=== PATIENT | male | born 1970 | race Caucasian/White ===

== ENCOUNTER 2019-05-08 21:40 | Emergency (ER) | payer BC ==
[~2019-05-08] VITALS: Ht 177.8 cm; Wt 85.3 kg
[2019-05-08 22:15] VITALS: BP_SYST 149
--- NOTE | 2019-05-08 22:24 | NUR ---
Pt placed to ER waiting room in stable condition.
--- NOTE | 2019-05-09 01:00 | NUR ---
Pt's name called and not present in waiting room.
--- NOTE | 2019-05-09 01:15 | NUR ---
Pt's name called and not present in waiting room.
--- NOTE | 2019-05-09 01:30 | NUR ---
Pt's name called and not present in waiting room. Pt LWBS.
== END 2019-05-09 01:30 | disposition left against medical advice (07) ==
LOC: SED 21:40
DX: Z02.89 Encounter for other administrative examinations (principal); Z53.21 Procedure and treatment not carried out due to patient leaving prior to being seen by health care provider

== ENCOUNTER 2019-10-19 19:12 | Inpatient (IN) | payer BC, SELFPAY ==
[~2019-10-19] VITALS: Ht 177.8 cm; Wt 88.0 kg
[2019-10-19] MEDS ORDERED: AMIT50TA3 PO (19:22)
[2019-10-19] MEDS ORDERED: LISI5TAB PO (19:22)
[2019-10-19] MEDS ORDERED: LORA-259 PO (19:22)
[2019-10-19 19:23] VITALS: BP_SYST 137
[2019-10-19] MEDS ORDERED: NS 500 ML IV ONE ×2 (20:45→22:00)
[2019-10-19 20:54] LABS: BASOPHILS % (AUTO) 0.3 % (0.0-2.0); HEMATOCRIT 44.1 % (36-54); HEMOGLOBIN 15.2 g/dL (14.0-18.0); LYMPHOCYTES # (AUTO) 0.8 K/uL (1.0-5.5); MEAN CORPUSCULAR HEMOGLOBIN 32 pg (27-31); MEAN CORPUSCULAR HGB CONC 35 % (32-36); MEAN CORPUSCULAR VOLUME 93 fL (79.0-98.0); MONOCYTES # (AUTO) 0.5 K/uL (0.0-1.0); MONOCYTES % (AUTO) 12.3 % (1.7-9.3); NEUTROPHILS # (AUTO) 2.6 K/uL (1.8-7.7); NEUTROPHILS % (AUTO) 67.4 % (40.0-70.0); PLATELET COUNT (AUTO) 112 K/uL (130-430); RED BLOOD CELL COUNT(AUTO) 4.73 MIL/uL (4.2-6.2); RED CELL DISTRIBUTION WIDTH 12.7 % (9.0-15.0); WHITE BLOOD COUNT (AUTO) 3.9 K/uL (4.8-10.8)
[2019-10-19] MEDS ORDERED: ACETAMINOPHEN 500 MG TABLET PO ONE (21:00)
[2019-10-19 21:17] LABS: POTASSIUM 4.1 mmol/L (3.5-5.1)
[2019-10-19 21:18] LABS: ALBUMIN 3.7 g/dL (3.4-4.8); CREATININE 1.51 mg/dL (0.55-1.30); TOTAL BILIRUBIN 0.5 mg/dL (0.0-1.0)
[2019-10-19 21:19] LABS: C-REACTIVE PROTEIN QUANT 1.2 mg/dL (0-0.5)
[2019-10-19 21:44] LABS: CKMB RELATIVE INDEX 0.2 (0.0-2.9); CREATINE KINASE MB 1.2 ng/mL (0-3.6)
[2019-10-19] MEDS ORDERED: AZITHROMYCIN 500 MG in NS 250 ML IV ONE (22:00)
[2019-10-19] MEDS ORDERED: OSELTAMIVIR PHOSPHATE 75 MG CAPSULE PO ONE (22:00)
[2019-10-19] MEDS ORDERED: cefTRIAXone 1 GM IVPB PREMIX 50 ML IV ONE ×2 (22:00→23:44)
[2019-10-19 23:00] VITALS: BP_SYST 122
[2019-10-19] MEDS ORDERED: AZITHROMYCIN 500 MG/VIAL (ZITHROMAX) IV ONE (23:44)
[2019-10-19] MEDS ORDERED: NACL 0.9% 1,000 ML IV SCH (23:55)
[2019-10-20] MEDS ORDERED: MORPHINE 2 MG/ML INJ. SYRINGE IVP PRN
[2019-10-20] MEDS ORDERED: cefTRIAXone 1 GM IVPB PREMIX 50 ML IV SCH
[2019-10-20] MEDS ORDERED: ACETAMINOPHEN 325 MG TABLET PO PRN
[2019-10-20] MEDS ORDERED: HYDROcodone/ACETAMIN 5-325 MG TAB (NORCO/ VICODIN) PO PRN
[2019-10-20] MEDS ORDERED: traMADol HCL HCL 50 MG TABLET (ULTRAM) PO PRN ×2 (00:30)
[2019-10-20] MEDS ORDERED: cefTRIAXone 1 GM in D5W 50 ML IV SCH (00:30)
[2019-10-20] MEDS ORDERED: AZITHROMYCIN 500 MG in NS 250 ML IV SCH ×3 (00:30)
[2019-10-20] MEDS ORDERED: TEMAZEPAM 15 MG CAPSULE PO PRN (00:45)
[2019-10-20] MEDS ORDERED: cloNIDine HCL 0.1 MG TABLET PO PRN (00:45)
[2019-10-20] MEDS: NACL 0.9% 1,000 ML IV SCH ×3 (00:57→23:02)
[2019-10-20] MEDS ORDERED: ENOXAPARIN SODIUM 40 MG/0.4 ML SYRINGE ONE (01:21)
[2019-10-20] MEDS ORDERED: AMITRIPTYLINE HCL 25 MG TABLET (ELAVIL) ONE (01:25)
[2019-10-20] MEDS ORDERED: ENOXAPARIN SODIUM 40 MG/0.4 ML SYRINGE SUBCUT ONE (01:30)
[2019-10-20 07:59] VITALS: BP_SYST 105
[2019-10-20 08:51] LABS: BASOPHILS % (AUTO) 0.9 % (0.0-2.0); EOSINOPHILS % (AUTO) 0.1 % (0.0-4.0); HEMATOCRIT 47.7 % (36-54); HEMOGLOBIN 16.2 g/dL (14.0-18.0); LYMPHOCYTES # (AUTO) 1.4 K/uL (1.0-5.5); LYMPHOCYTES % (AUTO) 32.5 % (20.5-51.5); MEAN CORPUSCULAR HEMOGLOBIN 32 pg (27-31); MEAN CORPUSCULAR HGB CONC 34 % (32-36); MEAN CORPUSCULAR VOLUME 94 fL (79.0-98.0); MONOCYTES # (AUTO) 0.4 K/uL (0.0-1.0); MONOCYTES % (AUTO) 10.1 % (1.7-9.3); NEUTROPHILS # (AUTO) 2.5 K/uL (1.8-7.7); NEUTROPHILS % (AUTO) 56.4 % (40.0-70.0); PLATELET COUNT (AUTO) 123 K/uL (130-430); RED BLOOD CELL COUNT(AUTO) 5.06 MIL/uL (4.2-6.2); RED CELL DISTRIBUTION WIDTH 13.2 % (9.0-15.0); WHITE BLOOD COUNT (AUTO) 4.4 K/uL (4.8-10.8)
[2019-10-20] MEDS ORDERED: OSELTAMIVIR PHOSPHATE 75 MG CAPSULE PO SCH (09:00)
[2019-10-20 09:26] LABS: ALBUMIN 3.6 g/dL (3.4-4.8); CREATININE 1.48 mg/dL (0.55-1.30); POTASSIUM 4.1 mmol/L (3.5-5.1); TOTAL BILIRUBIN 0.5 mg/dL (0.0-1.0)
[2019-10-20] MEDS: OSELTAMIVIR PHOSPHATE 75 MG CAPSULE PO SCH ×2 (09:35→22:11)
[2019-10-20] MEDS: guaiFENesin/DEXTROMETHORPHAN 10 ML UDC PO PRN ×3 (09:36→23:03)
[2019-10-20 12:00] VITALS: BP_SYST 145
[2019-10-20 14:10] VITALS: BP_SYST 145
[2019-10-20] MEDS: IPRATROPIUM/ALBUTEROL SULFATE 3 ML AMPUL.NEB (DUONEB) INH SCH ×2 (14:29→21:23)
[2019-10-20 16:00] VITALS: BP_SYST 126
[2019-10-20 20:00] VITALS: BP_SYST 124
[2019-10-20] MEDS: ENOXAPARIN SODIUM 40 MG/0.4 ML SYRINGE SUBCUT SCH (21:00)
[2019-10-20] MEDS: cefTRIAXone 1 GM in D5W 50 ML IV SCH (21:23)
[2019-10-20] MEDS: LISINOPRIL 5 MG TABLET PO SCH (22:12)
[2019-10-20] MEDS: AMITRIPTYLINE HCL 25 MG TABLET (ELAVIL) PO SCH (22:12)
[2019-10-20] MEDS: AZITHROMYCIN 500 MG in NS 250 ML IV SCH (22:14)
[2019-10-20] MEDS: ACETAMINOPHEN 325 MG TABLET PO PRN (23:04)
[2019-10-20 23:05] VITALS: BP_SYST 118
[2019-10-21 05:30] VITALS: BP_SYST 116
[2019-10-21] MEDS: NACL 0.9% 1,000 ML IV SCH ×3 (06:30→21:17)
[2019-10-21 06:32] LABS: BASOPHILS % (AUTO) 0.4 % (0.0-2.0); HEMATOCRIT 41.6 % (36-54); LYMPHOCYTES % (AUTO) 31.9 % (20.5-51.5); MEAN CORPUSCULAR HEMOGLOBIN 32 pg (27-31); MEAN CORPUSCULAR HGB CONC 34 % (32-36); MEAN CORPUSCULAR VOLUME 94 fL (79.0-98.0); MONOCYTES # (AUTO) 0.3 K/uL (0.0-1.0); MONOCYTES % (AUTO) 9.2 % (1.7-9.3); NEUTROPHILS # (AUTO) 1.8 K/uL (1.8-7.7); NEUTROPHILS % (AUTO) 58.5 % (40.0-70.0); PLATELET COUNT (AUTO) 105 K/uL (130-430); RED BLOOD CELL COUNT(AUTO) 4.41 MIL/uL (4.2-6.2); RED CELL DISTRIBUTION WIDTH 12.8 % (9.0-15.0); WHITE BLOOD COUNT (AUTO) 3.1 K/uL (4.8-10.8)
[2019-10-21 06:48] LABS: CALCIUM 7.9 mg/dL (8.4-11.0); CREATININE 1.25 mg/dL (0.55-1.30); POTASSIUM 4.2 mmol/L (3.5-5.1); TOTAL BILIRUBIN 0.4 mg/dL (0.0-1.0)
[2019-10-21] MEDS: IPRATROPIUM/ALBUTEROL SULFATE 3 ML AMPUL.NEB (DUONEB) INH SCH ×3 (07:00→15:30)
[2019-10-21 07:58] VITALS: BP_SYST 154
[2019-10-21] MEDS: OSELTAMIVIR PHOSPHATE 75 MG CAPSULE PO SCH ×2 (08:49→21:19)
[2019-10-21] MEDS: guaiFENesin/DEXTROMETHORPHAN 10 ML UDC PO PRN ×2 (09:06→17:42)
[2019-10-21] MEDS: ACETAMINOPHEN 325 MG TABLET PO PRN ×3 (09:07→23:10)
[2019-10-21 12:00] VITALS: BP_SYST 128
[2019-10-21 17:30] VITALS: BP_SYST 128
[2019-10-21 20:00] VITALS: BP_SYST 125
[2019-10-21] MEDS: ENOXAPARIN SODIUM 40 MG/0.4 ML SYRINGE SUBCUT SCH (21:00)
[2019-10-21] MEDS: cefTRIAXone 1 GM in D5W 50 ML IV SCH (21:18)
[2019-10-21] MEDS: AMITRIPTYLINE HCL 25 MG TABLET (ELAVIL) PO SCH (21:18)
[2019-10-21] MEDS: LISINOPRIL 5 MG TABLET PO SCH (21:19)
[2019-10-21] MEDS: AZITHROMYCIN 500 MG in NS 250 ML IV SCH (21:58)
[2019-10-21 23:10] VITALS: BP_SYST 136
[2019-10-22] MEDS: ACETAMINOPHEN 325 MG TABLET PO PRN ×3 (06:40→23:46)
[2019-10-22] MEDS: IPRATROPIUM/ALBUTEROL SULFATE 3 ML AMPUL.NEB (DUONEB) INH SCH ×2 (07:00→14:59)
[2019-10-22 08:00] VITALS: BP_SYST 148
[2019-10-22] MEDS: OSELTAMIVIR PHOSPHATE 75 MG CAPSULE PO SCH ×2 (08:09→20:16)
[2019-10-22 12:00] VITALS: BP_SYST 130
[2019-10-22] MEDS: NACL 0.9% 1,000 ML IV SCH (12:12)
[2019-10-22] MEDS: guaiFENesin/DEXTROMETHORPHAN 10 ML UDC PO PRN ×2 (15:29→23:46)
[2019-10-22 16:00] VITALS: BP_SYST 148
[2019-10-22] MEDS ORDERED: ALBUTEROL MDI INHALATION 8 GM INH INH PRN (16:00)
[2019-10-22] MEDS ORDERED: METOPROLOL TARTRATE 25 MG TABLET PO ONE (18:30)
[2019-10-22] MEDS ORDERED: METOPROLOL TARTRATE 25 MG TABLET ONE (18:39)
[2019-10-22] MEDS: AMITRIPTYLINE HCL 25 MG TABLET (ELAVIL) PO SCH (20:15)
[2019-10-22] MEDS: MULTIVITS,CA,MINERALS/IRON/FA 1 TABLET PO SCH (20:16)
[2019-10-22] MEDS: CHOLECALCIFEROL (VITAMIN D3) 2,000 UNIT TABLET PO SCH (20:16)
[2019-10-22] MEDS: HYDROXYCHLOROQUINE SULFATE 200 MG TABLET PO SCH (20:17)
[2019-10-22] MEDS: cefTRIAXone 1 GM in D5W 50 ML IV SCH (20:18)
[2019-10-22 20:30] VITALS: BP_SYST 133
[2019-10-22] MEDS ORDERED: METOPROLOL TARTRATE 25 MG TABLET PO SCH (21:00)
[2019-10-22] MEDS: LISINOPRIL 5 MG TABLET PO SCH (21:08)
[2019-10-22] MEDS: AZITHROMYCIN 500 MG in NS 250 ML IV SCH (22:15)
[2019-10-22 23:30] VITALS: BP_SYST 133
[2019-10-23 01:44] LABS: BILIRUBIN,URINE NEGATIVE (NEGATIVE); BLOOD, URINE NEGATIVE (NEGATIVE); CLARITY/URINE CLEAR (CLEAR); COLOR,URINE YELLOW (YELLOW); GLUCOSE,URINE NEGATIVE (NEGATIVE); KETONES,URINE TRACE (NEGATIVE); LEUKOCYTE ESTERASE ,URINE NEGATIVE (NEGATIVE); NITRITE, URINE NEGATIVE (NEGATIVE); PH,URINE 6.5 (5.0-8.0); PROTEIN URINE NEGATIVE (NEGATIVE); UROBILINOGEN,URINE 0.2 (0.2-1.0)
[2019-10-23] MEDS: NACL 0.9% 1,000 ML IV SCH ×2 (02:54→20:45)
[2019-10-23] MEDS: guaiFENesin/DEXTROMETHORPHAN 10 ML UDC PO PRN ×2 (06:40→23:45)
[2019-10-23 08:00] VITALS: BP_SYST 142
[2019-10-23 08:15] LABS: RETICULOCYTE COUNT 0.6 % (0.5-1.5)
[2019-10-23 08:23] LABS: BASOPHILS % (AUTO) 0.2 % (0.0-2.0); EOSINOPHILS % (AUTO) 0.1 % (0.0-4.0); HEMOGLOBIN 13.8 g/dL (14.0-18.0); LYMPHOCYTES # (AUTO) 0.9 K/uL (1.0-5.5); LYMPHOCYTES % (AUTO) 9.9 % (20.5-51.5); MEAN CORPUSCULAR HEMOGLOBIN 32 pg (27-31); MEAN CORPUSCULAR HGB CONC 34 % (32-36); MEAN CORPUSCULAR VOLUME 94 fL (79.0-98.0); MONOCYTES # (AUTO) 0.6 K/uL (0.0-1.0); MONOCYTES % (AUTO) 7.2 % (1.7-9.3); NEUTROPHILS # (AUTO) 7.2 K/uL (1.8-7.7); NEUTROPHILS % (AUTO) 82.6 % (40.0-70.0); RED BLOOD CELL COUNT(AUTO) 4.34 MIL/uL (4.2-6.2); WHITE BLOOD COUNT (AUTO) 8.7 K/uL (4.8-10.8)
[2019-10-23 08:34] LABS: ALBUMIN 2.9 g/dL (3.4-4.8); CALCIUM 8.2 mg/dL (8.4-11.0); CREATININE 1.09 mg/dL (0.55-1.30); PLATELET COUNT (AUTO) 116 K/uL (130-430); POTASSIUM 3.8 mmol/L (3.5-5.1); TOTAL BILIRUBIN 0.5 mg/dL (0.0-1.0)
[2019-10-23] MEDS: METOPROLOL TARTRATE 25 MG TABLET PO SCH ×2 (08:35→21:00)
[2019-10-23] MEDS: CHOLECALCIFEROL (VITAMIN D3) 2,000 UNIT TABLET PO SCH ×2 (08:35→20:45)
[2019-10-23] MEDS: OSELTAMIVIR PHOSPHATE 75 MG CAPSULE PO SCH ×2 (08:36→20:45)
[2019-10-23] MEDS: MULTIVITS,CA,MINERALS/IRON/FA 1 TABLET PO SCH ×2 (08:36→20:45)
[2019-10-23] MEDS: HYDROXYCHLOROQUINE SULFATE 200 MG TABLET PO SCH ×2 (08:36→20:45)
[2019-10-23] MEDS ORDERED: METOPROLOL SUCCINATE 25 MG TAB.SR.24H (TOPROL XL) PO SCH (09:00)
[2019-10-23 10:01] VITALS: BP_SYST 142
[2019-10-23 12:00] VITALS: BP_SYST 121
[2019-10-23] MEDS ORDERED: ASCORBIC ACID 500 MG TABLET PO ONE (12:00)
[2019-10-23] MEDS ORDERED: ENOXAPARIN SODIUM 30 MG/0.3 ML SYRINGE SUBCUT ONE (12:00)
[2019-10-23] MEDS ORDERED: LIDOCAINE PATCH 5% 1 EA TP ONE (12:00)
[2019-10-23 16:00] VITALS: BP_SYST 126
[2019-10-23] MEDS: LOPERAMIDE HCL 2 MG CAPSULE PO PRN (18:12)
[2019-10-23 20:40] VITALS: BP_SYST 120
[2019-10-23] MEDS: AMITRIPTYLINE HCL 25 MG TABLET (ELAVIL) PO SCH (20:45)
[2019-10-23] MEDS: LISINOPRIL 5 MG TABLET PO SCH (20:45)
[2019-10-23] MEDS: AZITHROMYCIN 500 MG in NS 250 ML IV SCH (20:45)
[2019-10-23] MEDS: MIRTAZAPINE 15 MG TABLET PO SCH (20:45)
[2019-10-23 23:45] VITALS: BP_SYST 122
[2019-10-24 08:00] VITALS: BP_SYST 124
[2019-10-24] MEDS ORDERED: ENOXAPARIN SODIUM 30 MG/0.3 ML SYRINGE SUBCUT SCH (09:00)
[2019-10-24] MEDS: MULTIVITS,CA,MINERALS/IRON/FA 1 TABLET PO SCH ×2 (09:13→21:15)
[2019-10-24] MEDS: METOPROLOL TARTRATE 25 MG TABLET PO SCH ×2 (09:13→20:56)
[2019-10-24] MEDS: CHOLECALCIFEROL (VITAMIN D3) 2,000 UNIT TABLET PO SCH ×2 (09:13→21:15)
[2019-10-24] MEDS: ASCORBIC ACID 500 MG TABLET PO SCH (09:13)
[2019-10-24] MEDS: HYDROXYCHLOROQUINE SULFATE 200 MG TABLET PO SCH ×2 (09:13→21:15)
[2019-10-24] MEDS: OSELTAMIVIR PHOSPHATE 75 MG CAPSULE PO SCH ×2 (09:13→21:15)
[2019-10-24] MEDS: LIDOCAINE PATCH 5% 1 EA TP SCH (09:16)
[2019-10-24] MEDS: LORazepam 1 MG TABLET PO PRN ×2 (10:56→23:47)
[2019-10-24 12:00] VITALS: BP_SYST 122
[2019-10-24] MEDS: NACL 0.9% 1,000 ML IV SCH (12:14)
[2019-10-24 16:00] VITALS: BP_SYST 116
[2019-10-24] MEDS: guaiFENesin/DEXTROMETHORPHAN 10 ML UDC PO PRN ×2 (18:28→23:47)
[2019-10-24 19:41] LABS: C-REACTIVE PROTEIN QUANT 3.7 mg/dL (0-0.5)
[2019-10-24] MEDS: ENOXAPARIN SODIUM 80 MG/0.8 ML SYRINGE SUBCUT SCH (21:04)
[2019-10-24 21:05] VITALS: BP_SYST 118
[2019-10-24] MEDS: LISINOPRIL 5 MG TABLET PO SCH (21:15)
[2019-10-24] MEDS: AZITHROMYCIN 500 MG in NS 250 ML IV SCH (21:15)
[2019-10-24] MEDS: MIRTAZAPINE 15 MG TABLET PO SCH (21:15)
[2019-10-24] MEDS: AMITRIPTYLINE HCL 25 MG TABLET (ELAVIL) PO SCH (21:15)
[2019-10-24 23:53] VITALS: BP_SYST 116
[2019-10-25] MEDS: NACL 0.9% 1,000 ML IV SCH ×2 (04:00→21:11)
[2019-10-25 06:43] LABS: BASOPHILS % (AUTO) 0.3 % (0.0-2.0); EOSINOPHILS % (AUTO) 1.2 % (0.0-4.0); HEMATOCRIT 38.8 % (36-54); LYMPHOCYTES # (AUTO) 1.1 K/uL (1.0-5.5); LYMPHOCYTES % (AUTO) 25.3 % (20.5-51.5); MEAN CORPUSCULAR HEMOGLOBIN 32 pg (27-31); MEAN CORPUSCULAR HGB CONC 34 % (32-36); MEAN CORPUSCULAR VOLUME 95 fL (79.0-98.0); MONOCYTES # (AUTO) 0.5 K/uL (0.0-1.0); MONOCYTES % (AUTO) 10.9 % (1.7-9.3); NEUTROPHILS # (AUTO) 2.6 K/uL (1.8-7.7); NEUTROPHILS % (AUTO) 62.3 % (40.0-70.0); PLATELET COUNT (AUTO) 204 K/uL (130-430); RED BLOOD CELL COUNT(AUTO) 4.11 MIL/uL (4.2-6.2); RED CELL DISTRIBUTION WIDTH 12.8 % (9.0-15.0); WHITE BLOOD COUNT (AUTO) 4.2 K/uL (4.8-10.8)
[2019-10-25 07:07] LABS: ALBUMIN 2.7 g/dL (3.4-4.8); CALCIUM 8.2 mg/dL (8.4-11.0); CREATININE 1.01 mg/dL (0.55-1.30); POTASSIUM 3.8 mmol/L (3.5-5.1); TOTAL BILIRUBIN 0.4 mg/dL (0.0-1.0)
[2019-10-25 08:23] LABS: ERYTHROCYTE SEDIMENTATION RATE 64 MM/HR (0-15)
[2019-10-25 08:25] VITALS: BP_SYST 120
[2019-10-25] MEDS: LIDOCAINE PATCH 5% 1 EA TP SCH (08:26)
[2019-10-25] MEDS: MULTIVITS,CA,MINERALS/IRON/FA 1 TABLET PO SCH ×2 (08:26→21:12)
[2019-10-25] MEDS: METOPROLOL TARTRATE 25 MG TABLET PO SCH ×2 (08:26→21:20)
[2019-10-25] MEDS: CHOLECALCIFEROL (VITAMIN D3) 2,000 UNIT TABLET PO SCH ×2 (08:26→21:14)
[2019-10-25] MEDS: HYDROXYCHLOROQUINE SULFATE 200 MG TABLET PO SCH ×2 (08:26→21:11)
[2019-10-25] MEDS: ASCORBIC ACID 500 MG TABLET PO SCH (08:26)
[2019-10-25] MEDS: ENOXAPARIN SODIUM 80 MG/0.8 ML SYRINGE SUBCUT SCH ×2 (08:27→21:16)
[2019-10-25 12:00] VITALS: BP_SYST 121
[2019-10-25 16:00] VITALS: BP_SYST 115
[2019-10-25] MEDS: LOPERAMIDE HCL 2 MG CAPSULE PO PRN (16:24)
[2019-10-25 21:00] VITALS: BP_SYST 136
[2019-10-25] MEDS: MIRTAZAPINE 15 MG TABLET PO SCH (21:12)
[2019-10-25] MEDS: AMITRIPTYLINE HCL 25 MG TABLET (ELAVIL) PO SCH (21:12)
[2019-10-25] MEDS: LISINOPRIL 5 MG TABLET PO SCH (21:21)
[2019-10-25] MEDS: guaiFENesin/DEXTROMETHORPHAN 10 ML UDC PO PRN (21:22)
[2019-10-26 00:10] VITALS: BP_SYST 115
[2019-10-26 06:30] VITALS: BP_SYST 113
[2019-10-26 08:00] VITALS: BP_SYST 128
[2019-10-26] MEDS: CHOLECALCIFEROL (VITAMIN D3) 2,000 UNIT TABLET PO SCH ×2 (08:19→20:35)
[2019-10-26] MEDS: MULTIVITS,CA,MINERALS/IRON/FA 1 TABLET PO SCH ×2 (08:19→20:35)
[2019-10-26] MEDS: ASCORBIC ACID 500 MG TABLET PO SCH (08:19)
[2019-10-26] MEDS: HYDROXYCHLOROQUINE SULFATE 200 MG TABLET PO SCH ×2 (08:19→20:35)
[2019-10-26] MEDS: LIDOCAINE PATCH 5% 1 EA TP SCH (08:19)
[2019-10-26] MEDS: LORazepam 1 MG TABLET PO PRN (08:20)
[2019-10-26] MEDS: METOPROLOL TARTRATE 25 MG TABLET PO SCH ×2 (08:20→20:41)
[2019-10-26] MEDS: ENOXAPARIN SODIUM 80 MG/0.8 ML SYRINGE SUBCUT SCH ×2 (08:22→20:48)
[2019-10-26 12:10] VITALS: BP_SYST 94
[2019-10-26] MEDS: NACL 0.9% 1,000 ML IV SCH (13:36)
[2019-10-26 16:00] VITALS: BP_SYST 125
[2019-10-26] MEDS: guaiFENesin/DEXTROMETHORPHAN 10 ML UDC PO PRN (17:30)
[2019-10-26 20:35] VITALS: BP_SYST 135
[2019-10-26] MEDS: MIRTAZAPINE 15 MG TABLET PO SCH (20:35)
[2019-10-26] MEDS: AMITRIPTYLINE HCL 25 MG TABLET (ELAVIL) PO SCH (20:35)
[2019-10-26] MEDS: LISINOPRIL 5 MG TABLET PO SCH (20:41)
[2019-10-27 00:10] VITALS: BP_SYST 114
[2019-10-27] MEDS: NACL 0.9% 1,000 ML IV SCH (04:57)
[2019-10-27 05:03] VITALS: BP_SYST 130
[2019-10-27 07:27] LABS: BASOPHILS % (AUTO) 0.5 % (0.0-2.0); EOSINOPHILS # (AUTO) 0.1 K/uL (0.0-0.4); EOSINOPHILS % (AUTO) 2.5 % (0.0-4.0); HEMATOCRIT 40.2 % (36-54); HEMOGLOBIN 13.5 g/dL (14.0-18.0); LYMPHOCYTES % (AUTO) 21.4 % (20.5-51.5); MEAN CORPUSCULAR HEMOGLOBIN 32 pg (27-31); MEAN CORPUSCULAR HGB CONC 34 % (32-36); MEAN CORPUSCULAR VOLUME 95 fL (79.0-98.0); MONOCYTES # (AUTO) 0.6 K/uL (0.0-1.0); MONOCYTES % (AUTO) 12.1 % (1.7-9.3); NEUTROPHILS # (AUTO) 2.9 K/uL (1.8-7.7); NEUTROPHILS % (AUTO) 63.5 % (40.0-70.0); PLATELET COUNT (AUTO) 293 K/uL (130-430); RED BLOOD CELL COUNT(AUTO) 4.26 MIL/uL (4.2-6.2); RED CELL DISTRIBUTION WIDTH 12.8 % (9.0-15.0); WHITE BLOOD COUNT (AUTO) 4.6 K/uL (4.8-10.8)
[2019-10-27 07:30] LABS: ALBUMIN 2.9 g/dL (3.4-4.8); C-REACTIVE PROTEIN QUANT 0.6 mg/dL (0-0.5); CALCIUM 8.4 mg/dL (8.4-11.0); CREATININE 1.11 mg/dL (0.55-1.30); POTASSIUM 4.6 mmol/L (3.5-5.1); TOTAL BILIRUBIN 0.5 mg/dL (0.0-1.0)
[2019-10-27] MEDS: ASCORBIC ACID 500 MG TABLET PO SCH (08:26)
[2019-10-27] MEDS: HYDROXYCHLOROQUINE SULFATE 200 MG TABLET PO SCH (08:26)
[2019-10-27] MEDS: MULTIVITS,CA,MINERALS/IRON/FA 1 TABLET PO SCH (08:26)
[2019-10-27] MEDS: CHOLECALCIFEROL (VITAMIN D3) 2,000 UNIT TABLET PO SCH (08:26)
[2019-10-27] MEDS: METOPROLOL TARTRATE 25 MG TABLET PO SCH (08:26)
[2019-10-27] MEDS: LIDOCAINE PATCH 5% 1 EA TP SCH (08:28)
[2019-10-27] MEDS: ENOXAPARIN SODIUM 80 MG/0.8 ML SYRINGE SUBCUT SCH (08:28)
[2019-10-27] MEDS: LORazepam 1 MG TABLET PO PRN (08:31)
[2019-10-27 08:39] VITALS: BP_SYST 132
[2019-10-27 09:42] LABS: ERYTHROCYTE SEDIMENTATION RATE 59 MM/HR (0-15)
[2019-10-27 12:19] VITALS: BP_SYST 139
[2019-10-27] MEDS ORDERED: METO25TA6 PO (12:42)
[2019-10-27 13:01] VITALS: BP_SYST 139
[2019-10-27] MEDS ORDERED: CHOL20004 PO (13:12)
[2019-10-27] MEDS ORDERED: MULTIVITAMIN MINERAL PO (13:14)
== END 2019-10-27 13:45 | disposition home or self-care (01) | DRG 177 ==
LOC: SED 19:12 → EEVIPCON 19:12 → STU 22:07
PROVIDERS: ADMIT Internal Medicine; ATTEND Internal Medicine
DX: U07.1 COVID-19 (principal); J10.08 Influenza due to other identified influenza virus with other specified pneumonia; J12.89 Other viral pneumonia; N17.0 Acute kidney failure with tubular necrosis; E87.1 Hypo-osmolality and hyponatremia; E44.1 Mild protein-calorie malnutrition; D69.6 Thrombocytopenia, unspecified; D72.819 Decreased white blood cell count, unspecified; I10 Essential (primary) hypertension; N28.9 Disorder of kidney and ureter, unspecified; E86.0 Dehydration; F32.9 Major depressive disorder, single episode, unspecified; F43.22 Adjustment disorder with anxiety; Z68.27 Body mass index [BMI] 27.0-27.9, adult; Z79.899 Other long term (current) drug therapy
CPT/HCPCS: 36415; 36600; 71045; 80053; 81003; 82550-TC; 82553-TC; 82728; 82803-TC; 82962; 83605; 83615-TC; 83880; 84484; 85025; 85044-TC; 85379; 85651-TC; 86140; 86710; 87040-TC; 93005; 94010; 94640; 94760; 96360; 99291; G0378; G9035; J0456; J0696; J1650; J7030; J7040; J7050; J7060; U0002